=== PATIENT | female | born 1955 | race Caucasian/White ===

== ENCOUNTER 2017-01-15 03:05 | Emergency (ER) | payer BC ==
[2017-01-15] MEDS: 0.9 % SODIUM CHLORIDE 1,000 ML IV ONE (03:09)
[2017-01-15] MEDS: NITROGLYCERIN/D5W 50 MG/250 ML ML IV ONE (03:09)
[2017-01-15 03:14] LABS: BASOPHILS % 0.8 (0.0-1.5); EOSINOPHILS % 0.3 % (0.0-6.8); MEAN CORPUSCULAR HEMOGLOBIN 29.8 pg (28.0-34.0); MEAN CORPUSCULAR VOLUME 88.9 fl (80.0-100.0); NEUTROPHILS # 11.8 # k/uL (1.4-7.7)
[2017-01-15] MEDS: ASPIRIN 81 MG CHEW TAB PO ONE (03:15)
[2017-01-15 03:25] LABS: eGFR (African) > 60; eGFR (Non-African) > 60
[2017-01-15] MEDS: ONDANSETRON HCL/PF 4 MG/ 2ML VIAL IVP ONE (03:30)
[2017-01-15] MEDS: MORPHINE SULFATE 4 MG/ML DISP.SYRIN IVP ONE (03:35)
--- NOTE | 2017-01-15 03:38 | ED Physician Documentation ---
Chest Pain - HISTORIAN Historian: patient - HPI Chief Complaint: Chest Pain Onset: other (0200) Timing: sudden onset Last known Well Date: 01/15/17 Last Known Well Time: 01:00 Context: sleep Severity: severe (03/06) Quality: sharp Chest Pain Radiation: jaw, arms Chest Pain Signs/Symptoms: nausea, vomiting, diaphoresis Worsened By: nothing Relieved By: nothing Further Comments: yes (62 year old female patient presents with chest pain 03/06 , awoke from sleep with "crushing" chest pain. reports patient was diagnosed with pneumonia 10 days ago and is on Cipro po.) - ROS CONST: recent illness (pneumonia), fever, chills MS/LYMPH: none GI/: none EYES/ENT: none SKIN/ENDO: none NEURO/PSYCH: none - PAST HX PA risk factors: no pertinent history DVT/PE Risk Factors: none TAD/AAA risk factors: none Neuro deficit: none GI disease: none Lung disease: none Surgeries/Procedures: hysterectomy Allergies/Adverse Reactions: Allergies Allergy/AdvReac Type Severity Reaction Status Date / Time Penicillins Allergy Verified 01/15/17 03:53 Home Medications: Ambulatory Orders Medication Instructions Recorded Ciprofloxacin HCl [Cipro] 500 mg PO BID 01/15/17 Prednisone 10 mg PO BID 01/15/17 - SOCIAL HX Smoking History: cigarettes - FAMILY HX Family HX: denies: none - REVIEWED ASSESSMENTS Nursing Assessment Reviewed: Yes Vitals Reviewed: Yes Progress - Progress Progress: 0250 On arrival patient diaphoretic and holding chest; c/o severe chest pain, diaphoretic, c/o nausea. O2 applied, placed on monitor - HR 56 Stat EKG and IV line placed; patient vomited. Short periods of apnea. Crash cart and ambu bag at bedside; 0305 Patient moved to Trauma 2. Nitro drip started at titrated for CP. Patient continues to rate pain 02/04. 0340 Call to [facility] - spoke with Gerhard EKG's faxed to medical safety director. [address] Sue Gonzalez requested additional EKG. Patient resting quietly on stretcher. When awakened, C/O chest pain. 0358 EKG #3, Sinus alfa, no ST elevation in V leads. Reviewed old records, patient filled cipro 500mg po and prednisone 10mg tab #15 on 01/05/[address] Hale at [facility], reviewed case including lab and xray results. Patient accepted to step down unit. Will hold on antibiotics, blood cultures obtained. Lactate -send out with 4 day turn around, will defer to [facility]. Updated family on plan of care, patient sleeping. - EKG/XRAY/CT EKG: rhythm (SR, 2mm ST elevation in V3, V4) XRAY: chest (RLL infiltate) - Additional EKG/XRAY/Consults EKG #2: rhythm (SB, 2-3mm ST elevation in V leads, 1mm in V5-6) ED Results Lab/Radiology - Lab Results Lab Results: Lab Results 01/15/17 01/15/17 01/15/17 03:10 03:10 03:10 WBC 17.40 K/ul H K/ul (4.00-12.00) RBC 4.82 M/ul M/ul (3.90-5.20) Hgb 14.3 g/dL g/dL (12.0-16.0) Hct 42.9 % % (34.5-46.5) MCV 88.9 fl fl (80.0-100.0) MCH 29.8 pg pg (28.0-34.0) MCHC 33.5 g/dL g/dL (30.0-36.0) RDW 12.8 % % (11.3-14.3) Plt Count 370 K/mm3 K/mm3 (130-400) Neut % (Auto) 68.1 % % (39.0-79.0) Lymph % (Auto) 23.9 % % (16.0-50.0) Sibley % (Auto) 6.0 % % (0.0-11.0) Eos % (Auto) 0.3 % % (0.0-6.8) Baso % (Auto) 0.8 (0.0-1.5) Neut # (Auto) 11.8 # k/uL H # k/uL (1.4-7.7) Lymph # (Auto) 4.2 # k/uL H # k/uL (0.6-4.0) Sibley # (Auto) 1.0 # k/uL H # k/uL (0.0-0.9) Eos # (Auto) 0.1 # k/uL # k/uL (0.0-0.6) Baso # (Auto) 0.1 # k/uL # k/uL (0.0-0.5) Reactive Lymphs % 1.0 % % (0.0-5.0) Reactive Lymphs # 0.2 # k/uL # k/uL (0.0-0.8) Sodium 136 mmol/L mmol/L (136-145) Potassium 4.7 mmol/L mmol/L (3.5-5.0) Chloride 106 mmol/L mmol/L (98-110) Carbon Dioxide 22 mmol/L mmol/L (20-32) BUN 28 mg/dL H mg/dL (10-26) Creatinine 0.9 mg/dL mg/dL (0.4-1.5) Est GFR ( Amer) > 60 (60 - ) Est GFR (Non-Af Amer) > 60 (60 - ) Glucose 187 mg/dL H mg/dL (70-99) Calcium 10.2 mg/dL mg/dL (8.5-10.5) Total Bilirubin 0.2 mg/dL mg/dL (0.2-1.2) AST 20 U/L U/L (0-41) ALT 16 U/L U/L (0-45) Alkaline Phosphatase 98 U/L U/L (46-116) Creatine Kinase 65 U/L U/L (0-225) CK-MB (CK-2) 1.2 ng/mL ng/mL (0.0-5.6) Troponin I < 0.03 ng/mL L ng/mL (0.03-0.06) Total Protein 8.5 g/dL g/dL (6.0-8.5) Albumin 4.9 g/dL g/dL (3.0-5.5) - Radiology Radiology Impressions: Portable chest History: Chest pain Findings: Low lung volumes are observed. Mild right bibasilar atelectasis or infiltrate is present. Bilateral bronchovascular crowding is observed. Heart size is normal. No pleural effusions are observed. Impression: Low lung volumes and mild right basilar atelectasis or infiltrate. Electronically signed on Jan 15, 2017 3:31:47 AM CDT by: Anjel Burnette - Orders Orders: ED Orders Category Date Time Status Continuous EKG monitoring Q30M Care 01/15/17 03:07 Active Continuous Pulse Oximetry Q30M Care 01/15/17 03:[address] IV Lock 1T Care 01/15/17 03:07 Active CHEST 1 VIEW [RAD] Routine Exams 01/15/17 03:19 Ordered CBC/PLATELET/DIFF Stat Lab 01/15/17 03:10 Completed CKMB Stat Lab 01/15/17 03:10 Completed CMP Stat Lab 01/15/17 03:10 Completed CREATINE KINASE Stat Lab 01/15/17 03:10 Completed TROPONIN I (cTnI) Stat Lab 01/15/17 03:10 Completed 0.9 % Sodium Chloride [Normal Saline] 1,000 ml Med 01/15/17 03:07 Discontinued IV NOW Aspirin Med 01/15/17 03:14 Discontinued 324 mg PO NOW ONE Morphine Sulfate [DepoDUR] Med 01/15/17 03:29 Discontinued 4 mg IVP NOW ONE Nitroglycerin/D5w [Ntg 0.2 mg/ml in D5w] Med 01/15/17 03:07 Active 50 mg in 250 ml IV 1T Ondansetron HCl/Pf [Zofran 4 mg/2 ml] Med 01/15/17 03:28 Discontinued 4 mg IVP NOW ONE Oxygen Daily Oxygen 01/15/17 03:15 Ordered EKG WITH COMPARISON Stat Ther 01/15/17 03:07 Ordered Chest Pain Physical Exam - EXAM General Appearance: severe distress EENT: eye inspection normal, ENT inspection normal, pharynx normal, no signs of dehydration, JON, no nystagmus, TM's nml Respiratory: decreased air movement, rales (right base), other (labored respirations, RR 28-30) CVS: no murmur, no gallop, no friction rub, pulses full, pulses equal, bradycardia (45-53) Abdomen: soft, no organomegaly, normal bowel sounds, no abdominal bruit, no distension Skin: diaphoresis, pallor Extremities: non-tender, normal range of motion, no evidence of injury, no edema , J, BEHAVIORAL MODIFICATION ASSISTANT Neuro: oriented X3, CN's nml as tested, motor nml, sensation nml, mood/affect nml Discharge Clincal Impression: Infiltrate of lung present on imaging of chest, Chest pain, rule out acute myocardial infarction Chest pain Qualifiers: Chest pain type: other chest pain Qualified Code(s): R07.89 - Other chest pain ; R07.8 - Other chest pain Leukocytosis Qualifiers: Leukocytosis type: unspecified Qualified Code(s): D72.829 - Elevated white blood cell count, unspecified Home Medications: Ambulatory Orders Ciprofloxacin HCl [Cipro] 500 mg PO BID 01/15/17 Prednisone 10 mg PO BID 01/15/17 Condition: Serious Disposition: 02 XFER SHT-TRM HOSP Decision to Admit: NO Decision Time: 04:37
[2017-01-15 06:02] VITALS: BP 191/88
--- NOTE | 2017-01-15 06:32 | Diagnostic Imaging Report ---
DEMARIO PATEL (LAILA) - ER [facility] [address] [facility] [address] Report Submission Date: Jan 15, 2017 3:31:47 AM CDT Patient Study Name: EUSEBIA CRAWFORD Date: Jan 15, 2017 3:13:32 AM CDT Modality Type: CR Gender: F Description: CHEST : 55 Institution: [facility] Physician: DEMARIO PATEL (LAILA) - ER Portable chest History: Chest pain Findings: Low lung volumes are observed. Mild right bibasilar atelectasis or infiltrate is present. Bilateral bronchovascular crowding is observed. Heart size is normal. No pleural effusions are observed. Impression: Low lung volumes and mild right basilar atelectasis or infiltrate. Electronically signed on Jan 15, 2017 3:31:47 AM CDT by: Anjel SINGH
[2017-01-15 07:39] LABS: ABG BASE EXCESS -1.6 (-2 - +2); ABG PH 7.56 (7.35-7.45)
== END 2017-01-15 04:55 | disposition short-term general hospital (02) ==
LOC: ED 03:05
DX: R91.8 Other nonspecific abnormal finding of lung field (principal); R07.89 Other chest pain; D72.829 Elevated white blood cell count, unspecified
CPT/HCPCS: 36600; 71010; 80053; 82550; 82553; 82803; 84484; 85025; 87040; 93005; J2270; J2405; J3490; J7030; 96361; 96374; 96375; 99284; S1016